=== PATIENT | female | born 1960 | race Hispanic/Latino ===

== ENCOUNTER 2024-01-27 01:00 | Outpatient (REF) | payer OTHER ==
[~2024-01-27 01:00] MED LIST: AMITRIPTYLINE H25 MG PO; CELEBREX100 MG PO; FAMOTIDINE20 MG PO; METOPROLOL SUCC25 MG PO; VALSARTAN-HCTZ1 EAC1 PO
== END 2024-06-05 11:10 | disposition home or self-care (01) ==
LOC: RAD 01:00
PROVIDERS: ATTEND Internal Medicine Gastroenterology
DX: Z01.818 Encounter for other preprocedural examination (principal); Z12.11 Encounter for screening for malignant neoplasm of colon
CPT/HCPCS: 93005; J2704